=== PATIENT | male | born 1960 | race Caucasian/White ===

== ENCOUNTER 2021-01-05 15:22 | Emergency (ER) | payer MEDICARE, OTHER ==
[~2021-01-05] VITALS: Ht 177.8 cm; Wt 59.0 kg
[2021-01-05 16:12] LABS: HEMOGLOBIN 10.7 gm/dl (14.0-17.5); RED BLOOD COUNT 4.44 M/UL (4.20-5.50)
[2021-01-05 16:32] LABS: BUN/CREATININE RATIO 28 (0-10)
[2021-01-06] MEDS ORDERED: CALMOSEPTINE OI71 GM TOP ×2 (10:00→10:01)
[2021-01-06] MEDS ORDERED: CARDIZEM 60MG T60 MG PO (10:02)
[2021-01-06] MEDS ORDERED: VITAMIN D325 MC6 PO (10:03)
[2021-01-06] MEDS ORDERED: DIGOXIN125 MCG PO (10:03)
[2021-01-06] MEDS ORDERED: FONDAPARIN7.5 MG/0.6 SQ (10:05)
[2021-01-06] MEDS ORDERED: LASIX 40 MG TAB40 MG PO (10:06)
[2021-01-06] MEDS ORDERED: GABAPENTIN600 MG PO (10:07)
[2021-01-06] MEDS ORDERED: HUMALOG100 UNIT/1 SC (10:11)
[2021-01-06] MEDS ORDERED: HYDROXYZINE HCL25 MG PO (10:12)
[2021-01-06] MEDS ORDERED: IPRAT-ALBUT 0.5-3 ML INH (10:13)
[2021-01-06] MEDS ORDERED: CLONAZEPAM1 MG PO (10:14)
[2021-01-06] MEDS ORDERED: LOPRESSOR 50 MG50 MG PO (10:15)
[2021-01-06] MEDS ORDERED: NICOTINE GUM2 MG BU (10:16)
[2021-01-06] MEDS ORDERED: ZOFRAN ODT 4 MG4 MG PO (10:17)
[2021-01-06] MEDS ORDERED: OXYCODONE HCL15 MG PO (10:20)
[2021-01-06] MEDS ORDERED: VENELEX OINTMEN60 GM TOP (10:21)
[2021-01-06] MEDS ORDERED: ZINC-22050 MG PO (10:22)
== END 2021-01-06 10:36 | disposition left against medical advice (07) ==
LOC: ER1 15:22 → CDU 22:10
PROVIDERS: Emergency Medicine
DX: R07.89 Other chest pain (principal); I10 Essential (primary) hypertension; I48.0 Paroxysmal atrial fibrillation; E11.9 Type 2 diabetes mellitus without complications; J44.9 Chronic obstructive pulmonary disease, unspecified; F11.90 Opioid use, unspecified, uncomplicated; R91.8 Other nonspecific abnormal finding of lung field; F41.9 Anxiety disorder, unspecified; F17.219 Nicotine dependence, cigarettes, with unspecified nicotine-induced disorders; Z88.1 Allergy status to other antibiotic agents; Z82.49 Family history of ischemic heart disease and other diseases of the circulatory system; Z79.4 Long term (current) use of insulin; Z79.899 Other long term (current) drug therapy; Z79.82 Long term (current) use of aspirin; Z20.822 Contact with and (suspected) exposure to COVID-19
CPT/HCPCS: 71045; 71250; 80053; 82550; 82553; 82962; 83874; 84484; 85025; 87040; 93005; 99285; G0378; J0692; U0002